=== PATIENT | male | born 1960 | race Caucasian/White ===

== ENCOUNTER 2020-03-22 07:51 | Day surgery (SDC) | payer OTHER, SELFPAY ==
[2020-03-21 12:25] VITALS: BMI 35.6
--- NOTE | 2020-03-21 13:14 | HO.ANESPROP2 ---
Documented by User: Zaina Villarreal 03/21/20 13:16 HPI - Anesthesia Eval Consult details Narrative: 59yo M for Colonoscopy [facility] Past Medical History Medical History Anxiety Atrial fibrillation Depression Diabetes mellitus Hyperlipemia Hyperplastic colon polyp Hypertension Prostate CA Surgical History Surgical History History of prostatectomy History of umbilical hernia repair History of vasectomy Social History Social History Smoking Status: Never smoker Second Hand Smoke Exposure: No Use of substances other than those prescribed or required for medical reasons: No Advance Directives: No Advance Directives Information Provided: Yes Advance Directives on File: No Meds Allergies Allergy/AdvReac Type Severity Reaction Status Date / Time No Known Allergies Allergy Verified 03/21/20 12:23 Home Medications Medication Instructions Recorded Confirmed Type allopurinol 1 tab PO DAILY 03/21/20 03/21/20 History amlodipine 1 tab PO DAILY 03/21/20 03/21/20 History lisinopril 1 tab PO DAILY 03/21/20 03/21/20 History metformin 1 tab PO BID 03/21/20 03/21/20 History metoprolol succinate 50 mg PO DAILY 03/21/20 03/21/20 History paroxetine HCl 1 tab PO DAILY 03/21/20 03/21/20 History rivaroxaban [Xarelto] 1 tab PO DAILY 03/21/20 03/21/20 History tadalafil 0.5 tab PO DAILY 03/21/20 03/21/20 History Exam Exam Date and Time: March 21, 2020 1314 Height,Weight and Vital Signs: Height 6 ft 1 in Weight 122.47 kg Assessment and Plan Assessment Anesthesia Assessment: Chart Reviewed Documented by User: Josefina Ulrich 03/22/20 09:06 [facility] Past Medical History Medical History Anxiety Atrial fibrillation Depression Diabetes mellitus Hyperlipemia Hyperplastic colon polyp Hypertension Prostate CA Surgical History Surgical History History of prostatectomy History of umbilical hernia repair History of vasectomy Social History Social History Smoking Status: Never smoker Second Hand Smoke Exposure: No Use of substances other than those prescribed or required for medical reasons: No Advance Directives: No Advance Directives Information Provided: Yes Advance Directives on File: No Meds Allergies Allergy/AdvReac Type Severity Reaction Status Date / Time No Known Allergies Allergy Verified 03/21/20 12:23 Home Medications Medication Instructions Recorded Confirmed Type allopurinol 1 tab PO DAILY 03/21/20 03/21/20 History amlodipine 1 tab PO DAILY 03/21/20 03/21/20 History lisinopril 1 tab PO DAILY 03/21/20 03/21/20 History metformin 1 tab PO BID 03/21/20 03/21/20 History metoprolol succinate 50 mg PO DAILY 03/21/20 03/21/20 History paroxetine HCl 1 tab PO DAILY 03/21/20 03/21/20 History rivaroxaban [Xarelto] 1 tab PO DAILY 03/21/20 03/21/20 History tadalafil 0.5 tab PO DAILY 03/21/20 03/21/20 History Exam Airway Mallampati Class: I TM Dist: >3cm Neck ROM: Full Denture: Upper and Lower Loose/Missing/Broken Teeth: Yes (All, wears dentures) Heart: RRR Lungs: CTA Assessment and Plan Assessment Anesthesia Assessment: Anesthesia Plan Discussed and Chart Reviewed Final Anesthetic Review NPO: Yes ASA Class: I Final Preanesthetic Review: Consent Obtained/Reviewed and Anes Risks/Benef Reviewed Patient Risk: Intermediate Procedure Risk: Low Anesthetic Plan Anesthetic Plan: MAC: Disposition: Standard PACU
[2020-03-22 08:20] VITALS: BP 135/95; PULSE 99; RESP 16; TEMP 36.2; O2SAT 99
[2020-03-22] MEDS: Lactated Ringers 1,000 ML 100 ML IVCONT (08:21)
[2020-03-22 08:26] LABS: Glucose, Whole Blood 122 mg/dL (60-115)
--- NOTE | 2020-03-22 08:40 | MHC.SHP ---
Pre-Procedural Eval Section A The patient is an INPATIENT: No Changes since office visit: No Cold of Flu in the past 2 weeks, No New Medical Problems, No Changes in Medication and No Patient answered all questions The History & Physical has been completed within 30 days and I have reviewed it.: Yes Section B Chief Complaint: Screening Allergies: Allergies Allergy/AdvReac Type Severity Reaction Status Date / Time No Known Allergies Allergy Verified 03/21/20 12:23 Plan Patient has been examined and remains a candidate for the planned procedure
--- NOTE | 2020-03-22 09:12 | PM.OP ---
Brief Operative Note Date of procedure: 03/22/20 Post-op diagnosis: other (colon polyps) Procedure: colonoscopy Surgeon: Dre Taylor Anesthesia: MAC Estimated blood loss (mL): 5 Pathology: other (colon polyps) Condition: stable Disposition: PACU
[2020-03-22 09:19] VITALS: BP 117/84; PULSE 91; RESP 16; TEMP 36.3; O2SAT 97
--- NOTE | 2020-03-22 09:25 | OP_ITS ---
SURGEON: Dre Taylor MD INDICATIONS: Colon cancer screening and prior history of adenomatous colon polyps. PREOPERATIVE DIAGNOSIS: POSTOPERATIVE DIAGNOSIS: PROCEDURE PERFORMED: Colonoscopy to the terminal ileum with biopsy and snare polypectomy. ESTIMATED BLOOD LOSS: COMPLICATIONS: ANESTHESIA: ASSISTANTS: SPECIMENS: MEDICATIONS: Monitored anesthesia care. DESCRIPTION OF PROCEDURE: History and physical performed. The risks and benefits of the procedure were explained to the patient. Informed consent was obtained. The patient was placed in left lateral decubitus position. A digital rectal exam was performed and was found to be normal. The Olympus pediatric video colonoscope was introduced into the rectum and advanced to the cecum without difficulty. The cecum was identified by transillumination, palpation, and identification of ileocecal valve. Examination was performed and the scope was removed. He tolerated the procedure well and was taken to recovery area in stable condition. FINDINGS: The terminal ileum was normal. The visualized colonic mucosa was within normal limits without evidence of masses or ulcers. Two polyps were identified. The first in the cecum was removed with biopsy forceps measuring less than 5 mm. The second at 70 cm measured approximately 8 mm and was removed with a snare and recovered via suction. There were few diverticula in the sigmoid. Retroflexed examination showed small internal hemorrhoids. IMPRESSION: Colon polyps. RECOMMENDATION: Follow up the biopsy results. MD MARYANNE Lomeli/RG / [id number]
[2020-03-22 09:30] VITALS: BP 123/76; PULSE 86; RESP 16; TEMP 36.6; O2SAT 98
--- NOTE | 2020-03-22 09:50 | HO.POSTANES ---
Post Anesthesia Evaluation Post Anesthesia Evaluation Vital Signs: Vital Signs Temp Pulse Resp BP Pulse Ox 03/22/20 09:30 97.8 F 86 16 123/76 98 03/22/20 09:19 97.3 F 91 16 117/84 97 03/22/20 08:20 97.2 F 99 16 135/95 H 99 Anesthesia: Monitored Mental Status: Awake Pain Control: Satisfactory Nausea/Vomiting: None Hydration: Adequate Anesthesia-Related Issues: No Anes. Related Issues
== END 2020-03-22 10:00 | disposition home or self-care (01) ==
PROVIDERS: PCP Nurse Practitioner Family; Visit Provider Internal Medicine Gastroenterology
PROC: 0DJD8ZZ Inspection of Lower Intestinal Tract, Via Natural or Artificial Opening Endoscopic (ICD-10-PCS; CPT 45378; principal; 2020-03-22 08:50)
DX: Z12.11 Encounter for screening for malignant neoplasm of colon (principal); Z80.0 Family history of malignant neoplasm of digestive organs; D12.0 Benign neoplasm of cecum; D12.4 Benign neoplasm of descending colon; K57.30 Diverticulosis of large intestine without perforation or abscess without bleeding; K64.8 Other hemorrhoids; I10 Essential (primary) hypertension; E11.9 Type 2 diabetes mellitus without complications; I48.91 Unspecified atrial fibrillation; Z79.01 Long term (current) use of anticoagulants; Z79.84 Long term (current) use of oral hypoglycemic drugs; Z79.899 Other long term (current) drug therapy; Z85.46 Personal history of malignant neoplasm of prostate
CPT/HCPCS: 45385; 45380; 82947; 88305

== ENCOUNTER 2022-05-25 08:30 | Emergency (ER) | payer OTHER, SELFPAY ==
--- NOTE | ~2022-05-25 | XR_ITS ---
EXAMINATION: XR SHOULDER, LEFT CLINICAL INFORMATION: Fall with poor range of motion COMPARISON: None TECHNIQUE: Three views of the left shoulder. FINDINGS: There is no definite evidence of acute fracture or dislocation of the left shoulder. There is slight irregularity in the region of the greater tuberosity however no adjacent edema is present to suggest this representing an acute nondisplaced fracture. No calcific tendinitis is appreciated. There is no widening of the coracoclavicular space. Glenohumeral joint unremarkable. There is some irregularity about the distal clavicle however this does not appear to be related to an acute fracture. There is mild spurring of the acromioclavicular joint. XR/XR shoulder LT min 2V IMPRESSION: No evidence of acute fracture, dislocation, or calcific tendinitis of the left shoulder.
[2022-05-25 08:34] VITALS: BP 159/125; PULSE 90; RESP 18; TEMP 35.7; O2SAT 97; BMI 38.9
[2022-05-25 08:41] VITALS: BP 179/117; PULSE 79; RESP 18; O2SAT 98
--- NOTE | 2022-05-25 09:31 | ED.EXTPRO ---
HPI - Extremity Problem General Chief complaint: Extremity Injury, Upper Stated complaint: l shoulder pain Time Seen by Provider: 05/25/22 09:07 Source: patient Mode of arrival: ambulatory Limitations: no limitations History of Present Illness HPI Narrative: 62-year-old male with history of AFib on Xarelto, hypertension, diabetes who presents with left shoulder pain after fall on . Patient right-hand dominant. Patient reports he was sitting on a stool and fell backwards. He reached out to catch himself with his left hand feeling immediate pain in his left shoulder. Since then patient reports pain and limited mobility in his left shoulder since the fall. No head strike or loss of consciousness. No associated weakness, numbness, tingling of the extremity. Related Data Home Medications Medication Instructions Recorded Confirmed allopurinol 100 mg tablet 1 tab PO DAILY 03/21/20 03/21/20 amlodipine 5 mg tablet 1 tab PO DAILY 03/21/20 03/21/20 lisinopril 20 mg tablet 1 tab PO DAILY 03/21/20 03/21/20 metformin 850 mg tablet 1 tab PO BID 03/21/20 03/21/20 metoprolol succinate 50 mg 50 mg PO DAILY 03/21/20 03/21/20 tablet,extended release 24 hr paroxetine HCl 40 mg tablet 1 tab PO DAILY 03/21/20 03/21/20 rivaroxaban 20 mg tablet (Xarelto) 1 tab PO DAILY 03/21/20 03/21/20 tadalafil 20 mg tablet 0.5 tab PO DAILY 03/21/20 03/21/20 Allergies Allergy/AdvReac Type Severity Reaction Status Date / Time No Known Allergies Allergy Verified 03/21/20 12:23 Review of Systems Review of Systems: Yes all other systems are reviewed and are negative Constitutional: Constitutional: Reports no additional constitutional complaints, Denies body ache(s), Denies chills, Denies fever(s), Denies headache(s) and Denies weakness Eyes: Eyes: Reports no additional eye complaints and Denies change in vision ENT: Reports system reviewed and no additional complaints, except as documented, Denies dizziness, Denies headache(s), Denies nasal congestion, Denies nasal discharge and Denies neck pain Cardiovascular: Cardiovascular: Reports no additional cardiovascular complaints, Denies chest pain, Denies leg edema and Denies dyspnea Respiratory: Respiratory: Reports no additional respiratory complaints, Denies cough and Denies dyspnea Gastrointestinal: Gastrointestinal: Reports no additional gastrointestinal complaints, Denies abdominal pain, Denies diarrhea, Denies nausea and Denies vomiting Genitourinary: Genitourinary: Denies urinary incontinence Musculoskeletal: Musculoskeletal: Reports no additional musculoskeletal complaints, Denies back pain, Reports arthralgias, Denies joint swelling, Reports limited range of motion, Denies neck pain, Denies numbness and Denies tingling Integumentary/Breasts: Skin/Breast: Reports system reviewed and no additional complaints, except as docu and Denies rash Neurologic: Reports system reviewed and no additional complaints, except as documented, Denies Abnormal speech present, Denies dizziness, Denies headache(s), Denies numbness, Denies tingling and Denies weakness PMFSH Past Medical History Attestation statement: The following information was validated with the patient. Source: old records reviewed and nursing notes reviewed Medical History Anxiety Atrial fibrillation Depression Diabetes mellitus Hyperlipemia Hyperplastic colon polyp Hypertension Prostate CA Surgical History History of prostatectomy History of umbilical hernia repair History of vasectomy Social History Social History Alcohol intake: current Alcohol intake frequency: 0-2 drinks per day Smoked in Last 30 Days: No Second Hand Smoke Exposure: No Use of substances other than those prescribed or required for medical reasons: No Advance Directives: No Advance Directives Information Provided: No Physical Exam Vital Signs: Vital Signs: Last Vital Signs Temp 96.2 F L 05/25/22 08:34 Pulse 79 05/25/22 08:41 Resp 18 05/25/22 08:41 BP 179/117 H 05/25/22 08:41 Pulse Ox 98 05/25/22 08:41 O2 Del Method 05/25/22 08:41 BMI result Body Mass Index 38.9 Const: General: cooperative, healthy appearing, comfortable and no acute distress Orientation/consciousness: patient oriented x3 Limitations: no limitations HEENT: Head: Yes normal to inspection Ears: hearing grossly normal bilaterally General nose exam: Normal external nose present Face and sinus: Yes normal facial exam Mouth: Normal oral and palatal mucosa present Throat: Yes posterior oropharynx normal Eyes: General: appearance normal, both eyes and all related structures Pupils: Equal, round and reactive pupils present Neck: Neck: Yes normal visual inspection Chest: Chest palpation & inspection: normal inspection of the chest Resp: Effort & Inspection: normal respiratory effort Auscultation: clear to auscultation bilaterally Cardio: Rate: regular rate Rhythm: regular rhythm Peripheral pulses: Peripheral pulses 2+ throughout GI: Inspection: Yes normal to inspection Palpation (GI): Soft to palpation and nontender Auscultation: normal bowel sounds Back/Spine/Pelvis: Thoracic/Lumbar Spine: thoracic and lumbar spine normal to inspection Skin: General skin exam: no rashes or lesions noted Neuro: General: patient oriented x3, no focal motor deficits and normal sensation to monofilament Cranial nerves: Yes Equal, round and reactive pupils present Cognition (Neuro): normal cognition Speech: No Abnormal speech present Gait exam (Neuro): Normal gait present Motor exam (neuro): 5/5 motor strength present throughout Extrem: Other: Patient with tenderness of the left proximal humerus. Patient with limited abduction of the extremity due to pain. Five in 5 strength hand. Sensation normal distally. Palpable radial and ulnar pulses. General: Yes normal to inspection Course Course Course Narrative: X-rays negative for fracture. Consider rotator cuff injury. Patient will be placed in a sling and given referral to follow-up with orthopedics outpatient. Reviewed rice. Reviewed Tylenol for pain. Reviewed worrisome signs and symptoms when to return to the emergency room. Comfortable plan for discharge home. Medical Decision Making Medical Decision Making [facility] Narrative: 62-year-old male [id number] here with left shoulder pain after a mechanical fall which occurred Patient with tenderness of the left proximal humerus with limited range of motion. X-rays ordered Asymptomatic hypertension. Offered patient's blood pressure medications which he did not take this morning the patient will take at home. Differential Diagnosis Differential Diagnoses: The differential diagnosis associated with the presentation includes Fracture, contusion, rotator cuff injury Independent Interpretation I performed an independent interpretation of an: Plain X-Ray (I independently reviewed the x-ray which shows no acute fracture or dislocation of the shoulder) Radiology Impression Discussion of test interpretation with radiology: I have reviewed the radiologist's reading. Radiologist Impression: [address] [address] XRay Report Signed Patient: Berto Muhammad MR#: [id number] : 1960 Acct:[id number] Age/Sex: 62 / M ADM Date: 05/25/22 Loc: HO.ED Attending Dr: Ordering Physician: Josefina Fitch MD Date of Service: 05/25/22 Procedure(s): XR shoulder LT min 2V Accession Number(s): [id number] cc: Josefina Fitch MD~ EXAMINATION: XR SHOULDER, LEFT CLINICAL INFORMATION: Fall with poor range of motion? COMPARISON: None? TECHNIQUE: Three views of the left shoulder. FINDINGS: There is no definite evidence of acute fracture or dislocation of the left shoulder. There is slight irregularity in the region of the greater tuberosity however no adjacent edema is present to suggest this representing an acute nondisplaced fracture. No calcific tendinitis is appreciated. There is no widening of the coracoclavicular space. Glenohumeral joint unremarkable. There is some irregularity about the distal clavicle however this does not appear to be related to an acute fracture. There is mild spurring of the acromioclavicular joint. XR/XR shoulder LT min 2V IMPRESSION: No evidence of acute fracture, dislocation, or calcific tendinitis of the left shoulder. Procedures Procedure Narrative Procedure Narrative: Sling Discharge Plan Discharge Clinical Impression: Left shoulder strain Patient Disposition: Home, Self-Care Instructions: Muscle Strain (ED), Rotator Cuff Injury (ED), How to Use a Sling (ED) Additional Instructions: X-ray show no fracture. We discussed that you may have an injury to your rotator cuff or labrum. Therefore we are placing you in a sling and referring you to follow-up with orthopedics. Limit use of the extremity Use ice as needed Take Tylenol for pain Prescriptions: No Action metoprolol succinate 50 mg Tablet Extended Release 24 Hr 50 mg PO DAILY lisinopril 20 mg tablet 1 tab PO DAILY metformin 850 mg tablet 1 tab PO BID amlodipine 5 mg tablet 1 tab PO DAILY allopurinol 100 mg tablet 1 tab PO DAILY paroxetine HCl 40 mg tablet 1 tab PO DAILY tadalafil 20 mg tablet 0.5 tab PO DAILY Xarelto 20 mg tablet 1 tab PO DAILY [place] [facility] [place] [facility] [place] Group[place] - 1 week Stand Alone Forms: Work/School Release Interventions: ED Discharge Assessment Last Done: 05/25/22 11:17 Discharge Date/Time: 05/25/22 11:18
== END 2022-05-25 11:18 | disposition home or self-care (01) ==
PROVIDERS: Emergency Provider Student in an Organized Health Care Education/Training Program; PCP Nurse Practitioner Family
DX: S46.912A Strain of unspecified muscle, fascia and tendon at shoulder and upper arm level, left arm, initial encounter (principal); W07.XXXA Fall from chair, initial encounter; I10 Essential (primary) hypertension; E11.9 Type 2 diabetes mellitus without complications; I48.91 Unspecified atrial fibrillation; Z79.01 Long term (current) use of anticoagulants; Z79.84 Long term (current) use of oral hypoglycemic drugs; Z79.899 Other long term (current) drug therapy; Y93.9 Activity, unspecified; Y92.9 Unspecified place or not applicable; Y99.9 Unspecified external cause status
CPT/HCPCS: 73030; 99283; 99284